=== PATIENT | male | born 1985 | race African-American/Black ===

== ENCOUNTER 2016-12-06 22:59 | Observation (INO) | payer OTHER ==
[~2016-12-06] VITALS: Ht 185.4 cm; Wt 110.3 kg
--- NOTE | ~2016-12-06 | 2DMMODE ---
[facility] [address] [place] [address] 2 D/M-MODE ECHOCARDIOGRAM Name: ALEJANDROSHIMA Room #: 209-P [facility] IN ..#: [id number] Admission: 12/07/16 Attend Phys: Vish Talbert MD Discharge: Date of : 81 Date of Service: 12/07/16 1230 Report #: [id number] THIS REPORT FOR: //name// APPROVED REPORT Study performed: 12/07/2016 08:10:10 EXAM: Comprehensive 2D, Doppler, and color-flow Echocardiogram Patient Location: Bedside Room #: 209 Blood Pressure: 134/85 mmHg HR: 65 bpm Other Information Study Quality: Adequate Indications Dyspnea Palpitations Chest Pain Hx: WPW 2D Dimensions RVDd: 40.29 mm LVEF(%): 53.33 (>50%) IVSd: 10.49 (7-11mm) LVOT Diam: 21.87 (18-24mm) LVDd: 48.12 mm PWd: 8.78 (7-11mm) Ascending Ao: 25.43 (22-36mm) LVDs: 34.89 (25-40mm) Aortic Root: 30.02 mm Santos's LVEF: 53.33 % Volumes Left Atrial Volume (Systole) Single Plane 4CH: 39.38 mL Single Plane 2CH: 47.86 mL LA ESV Index: 24.00 mL/m2 Aortic Valve AoV Peak Vishal.: 1.07 m/s AO Peak Gr.: 4.57 mmHg LVOT Max P.92 mmHg LVOT Max V: 0.99 m/s Mitral Valve [facility] [address] [place] [address] 2 D/M-MODE ECHOCARDIOGRAM Name: SHIMA ALLEN Room #: 209-P ADM IN .R.#: [id number] Admission: 12/07/16 Attend Phys: Vish Talbert MD Discharge: Date of : 81 Date of Service: 12/07/16 1230 Report #: [id number] E/A Ratio: 2.1 MV Decel. Time: 130.14 ms MV E Max Vishal.: 0.87 m/s MV A Vishal.: 0.42 m/s MV PHT: 37.74 ms Pulmonary Valve PV Peak Vishal.: 0.78 m/s PV Peak Gr.: 2.42 mmHg Pulmonary Vein P Vein S: 44.0 m/s P Vein D: 53.2 m/s Tricuspid Valve TR Peak Vishal.: 2.50 m/s RAP Estimate: 5.00 mmHg TR Peak Gr.: 24.96 mmHg RVSP: 30.00 mmHg Left Ventricle The left ventricle is normal size. There is normal LV segmental wall motion. There is normal left ventricular wall thickness. The left ventricular systolic function is normal. LVEF is 50-55%. The left ventricular diastolic function is normal. Right Ventricle The right ventricle is normal size. The right ventricular systolic function is normal. Atria The left atrium size is normal. The right atrium size is normal. Aortic Valve The aortic valve is normal in structure. No aortic regurgitation is present. There is no aortic valvular stenosis. Mitral Valve The mitral valve is normal in structure. Trace mitral regurgitation. No evidence of mitral valve stenosis. Tricuspid Valve The tricuspid valve is normal in structure. There is mild to moderate tricuspid regurgitation. The right atrial pressure is estimated at 5 mmHg. There is borderline mild pulmonary hypertension with an estimated PAP of 30mmHg. Pulmonic Valve [facility] [address] [place] [address] 2 D/M-MODE ECHOCARDIOGRAM Name: SHIMA ALLEN Room #: 209-P [facility] IN ..#: [id number] Admission: 12/07/16 Attend Phys: Vish Talbert MD Discharge: Date of : 81 Date of Service: 12/07/16 1230 Report #: [id number] The pulmonary valve is normal in structure. Mild pulmonic regurgitation. Great Vessels The aortic root is normal in size. The ascending aorta is normal in size. IVC is normal in size and collapses >50% with inspiration. Pericardium There is no pericardial effusion. <Conclusion> The left ventricle is normal size. LVEF is 50-55%. The aortic valve is normal in structure. The mitral valve is normal in structure. Trace mitral regurgitation. The tricuspid valve is normal in structure. There is mild to moderate tricuspid regurgitation. The right atrial pressure is estimated at 5 mmHg. There is borderline mild pulmonary hypertension with an estimated PAP of 30mmHg. The pulmonary valve is normal in structure. Mild pulmonic regurgitation. <ELECTRONICALLY SIGNED> By: Yaw Bower MD 12/07/16 1230 1230 1230 Yaw Bower MD /INF
--- NOTE | ~2016-12-06 | EKG ---
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1985 Requested By: Jose Lilly Order Number: [id number] MD: Raphael Monge Measurements Intervals [place] Rate: 76 P: 43 NM: 167 QRS: 72 QRSD: 90 T: 31 QT: 364 QTc: 410 Interpretive Statements Sinus rhythm Voltage criteria for left ventricular hypertrophy Compared to ECG 11/12/2006 04:02:12 Early repolarization no longer present Electronically Signed On 12-07-2016 9:06:44 CDT by Raphael Monge [email or web address] <ELECTRONICALLY SIGNED> By: Raphael Monge MD, [facility] 05/09/24 905 06 06 Raphael Monge MD, [facility] /EPI
[2016-12-06 23:01] VITALS: BP 135/83
[2016-12-06 23:58] LABS: ABSOLUTE NEUTROPHILS 2.8 thou/uL (1.4-8.2); BASOPHILS 1.3 % (0.0-2.0); EOSINOPHILS 1.9 % (0.0-3.0); HEMOGLOBIN 14.2 gm/dL (14.0-18.0); LYMPHOCYTES 41.4 % (24.0-44.0); MCH 27.3 pg (26.0-34.0); MCV 82.9 fL (80.0-100.0); MONOCYTES 14.7 % (1.0-8.0); PLATELET COUNT 289 thou/uL (150-400); POLYS 40.7 % (36.0-66.0); RBC 5.18 mil/uL (4.50-6.00); RDW 14.9 % (10.5-14.5)
[2016-12-06 23:59] LABS: MANUAL DIFF NO
[2016-12-07 00:05] LABS: ANION GAP 8 mmol/L (7-16); BUN 20 mg/dL (7-18); CALCIUM 8.9 mg/dL (8.5-10.1); CHLORIDE 103 mmol/L (98-107); CO2 29 mmol/L (21-32); CREATININE 1.1 mg/dL (0.7-1.3); GLUCOSE 115 mg/dL (74-106); POTASSIUM 3.7 mmol/L (3.5-5.1); SODIUM 140 mmol/L (136-145)
[2016-12-07 00:14] LABS: MAGNESIUM 1.8 mg/dL (1.8-2.4); TROPONIN-I < 0.04 ng/mL (<0.04-0.07)
[2016-12-07 01:21] VITALS: BP 138/79
[2016-12-07 02:33] VITALS: BP 134/85
[2016-12-07] MEDS ORDERED: ASPIR 8181 MG PO (03:12)
[2016-12-07 06:45] LABS: TROPONIN-I < 0.04 ng/mL (<0.04-0.07)
[2016-12-07 08:10] VITALS: BP 120/88
[2016-12-07 08:24] LABS: CHOLESTEROL 159 mg/dL (<200); HDL CHOLESTEROL 40 mg/dL (>40); LDL CHOLESTEROL 96 mg/dL (<100); TRIGLYCERIDE 117 mg/dL (<150); VLDL 23 mg/dL (<40)
[2016-12-07 11:50] VITALS: BP 119/79
[2016-12-07 15:45] VITALS: BP 132/81
[2016-12-07 16:55] LABS: AMP/METHAMP Negative (Negative); BARBITURATES Negative (Negative); BENZODIAZEPINES Negative (Negative); COCAINE Negative (Negative); METHADONE Negative (Negative); OPIATES POSITIVE (Negative); PCP Negative (Negative); THC Negative (Negative)
[2016-12-07 20:19] VITALS: BP 116/77
[2016-12-07 22:06] LABS: HIV ANTIBODY Non Reactive (Non Reactive)
[2016-12-08 04:15] VITALS: BP 111/77
[2016-12-08 07:05] VITALS: BP 173/108
[2016-12-08] MEDS ORDERED: NEXIUM40 MG PO (09:28)
[2016-12-08] MEDS ORDERED: CARDIZEM CD 18180 M3 PO (09:28)
[2016-12-08 09:33] VITALS: BP 118/78
[2016-12-08] MEDS ORDERED: PROTONIX40 M1 PO ×2 (10:04→10:06)
== END 2016-12-08 10:48 | disposition home or self-care (01) ==
LOC: ER 22:59 → 2N 12-07 00:40 → EROBS 12-07 00:40 → 2N 12-07 01:43
PROVIDERS: Emergency Medicine; Hospitalist
DX: R07.89 Other chest pain (principal); R11.2 Nausea with vomiting, unspecified; R00.2 Palpitations; K21.9 Gastro-esophageal reflux disease without esophagitis; R10.9 Unspecified abdominal pain; Z87.891 Personal history of nicotine dependence; Z79.899 Other long term (current) drug therapy

== ENCOUNTER 2017-01-16 14:32 | Emergency (ER) | payer OTHER ==
[~2017-01-16] VITALS: Ht 185.4 cm; Wt 90.7 kg
--- NOTE | ~2017-01-16 | EKG ---
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1985 Requested By: James Davis Order Number: [id number] MD: Raphael Monge Measurements Intervals [place] Rate: 81 P: 49 LA: 165 QRS: 68 QRSD: 80 T: 28 QT: 361 QTc: 419 Interpretive Statements Sinus rhythm No significant abnormality Compared to ECG 12/09/2016 02:52:29 ST (T wave) deviation no longer present Electronically Signed On 01-16-2017 16:06:05 CDT by Raphael Monge [email or web address] <ELECTRONICALLY SIGNED> By: Raphael Monge MD, [facility] 01/16/17 1606 1436 1436 Raphael Monge MD, [facility] /EPI
[~2017-01-16 14:32] MED LIST: ASPIR 8181 MG PO; CARDIZEM CD 18180 M3 PO; NEXIUM40 MG PO; PROTONIX40 M1 PO
[2017-01-16 17:01] LABS: HEMATOCRIT 44.1 % (42.0-52.0); HEMOGLOBIN 14.4 gm/dL (14.0-18.0); MCH 27.3 pg (26.0-34.0); MCHC 32.8 g/dL (28.0-37.0); MCV 83.4 fL (80.0-100.0); PLATELET COUNT 291 thou/uL (150-400); RBC 5.28 mil/uL (4.50-6.00); RDW 14.6 % (10.5-14.5); WBC 5.6 thou/uL (4.0-11.0)
[2017-01-16 17:04] LABS: MANUAL DIFF YES
[2017-01-16 17:06] LABS: ANION GAP 6 mmol/L (7-16); BUN 21 mg/dL (7-18); CALCIUM 9.3 mg/dL (8.5-10.1); CHLORIDE 106 mmol/L (98-107); CO2 28 mmol/L (21-32); GLUCOSE 95 mg/dL (74-106); POTASSIUM 4.1 mmol/L (3.5-5.1); SODIUM 140 mmol/L (136-145)
[2017-01-16 17:14] LABS: APTT 26.7 Seconds (24.5-32.8); PROTIME 10.1 Seconds (9.3-11.4)
[2017-01-16 17:17] LABS: ALBUMIN 4.2 g/dL (3.4-5.0); ALKALINE PHOSPHATASE 92 U/L (46-116); MAGNESIUM 2.1 mg/dL (1.8-2.4); NT-PRO BRAIN NAT PEPTIDE 18 pg/mL (<300); SGOT 48 U/L (15-37); SGPT 94 U/L (30-65); TOTAL BILIRUBIN 0.4 mg/dL (<0.1-1.0); TOTAL PROTEIN 8.5 g/dL (6.4-8.2); TROPONIN-I < 0.04 ng/mL (<0.04-0.07)
[2017-01-16 17:25] LABS: ABSOLUTE NEUTROPHILS 1.7 thou/uL (1.4-8.2); ATYPICAL LYMPHS 1 %; TOTAL CELL COUNT 100
[2017-01-16] MEDS ORDERED: CARAFATE 1 GM TA1 G1 PO (17:55)
[2017-01-16] MEDS ORDERED: PEPCID20 MG PO (17:55)
== END 2017-01-16 19:19 | disposition home or self-care (01) ==
LOC: ER 14:32
PROVIDERS: Emergency Medicine
DX: K29.70 Gastritis, unspecified, without bleeding (principal); R12 Heartburn; R00.2 Palpitations; Z91.14 Patient's other noncompliance with medication regimen; K21.9 Gastro-esophageal reflux disease without esophagitis